=== PATIENT | male | born 1960 | race Two or more races ===

== ENCOUNTER 2018-11-11 15:02 | Outpatient (CLI) | payer OTHER | END 2018-11-11 15:18 | disposition home or self-care (01) | LOC: EDBD 15:02 → LAB 15:02 | DX: R97.20 Elevated prostate specific antigen [PSA] (principal) ==

== ENCOUNTER 2019-01-24 19:12 | Emergency (ER) | payer OTHER ==
[~2019-01-24] VITALS: Ht 165.1 cm; Wt 86.2 kg
[2019-01-24] MEDS ORDERED: NORVASC5 MG PO (20:34)
[2019-01-24] MEDS ORDERED: CIPRO500 MG PO (20:35)
[2019-01-24] MEDS ORDERED: TAMS0.4C PO (20:35)
== END 2019-01-25 00:21 | disposition home or self-care (01) ==
LOC: ER 19:12
DX: R33.8 Other retention of urine (principal)

== ENCOUNTER 2019-02-09 07:09 | Outpatient (CLI) | payer OTHER ==
[~2019-02-09 07:09] MED LIST: CIPRO500 MG PO; NORVASC5 MG PO; TAMS0.4C PO
== END 2019-02-09 08:19 | disposition home or self-care (01) ==
LOC: SONOGRAMA 07:09
DX: R97.20 Elevated prostate specific antigen [PSA] (principal)

== ENCOUNTER 2019-02-20 16:23 | Emergency (ER) | payer OTHER ==
[~2019-02-20] VITALS: Ht 170.2 cm; Wt 87.1 kg
== END 2019-02-20 19:42 | disposition home or self-care (01) ==
LOC: ER 16:23
DX: N40.1 Benign prostatic hyperplasia with lower urinary tract symptoms (principal); R33.8 Other retention of urine

== ENCOUNTER 2019-03-16 08:00 | Inpatient (IN) | payer OTHER ==
[~2019-03-16] VITALS: Ht 167.6 cm; Wt 87.1 kg
== END 2019-03-27 13:32 | disposition home or self-care (01) | DRG 708 ==
LOC: ADM 08:00 → EDSTATUS 08:00 → O/R 03-25 05:00 → SURH 03-25 05:00 → SURG 03-25 07:00 → SURH 03-25 10:28
PROVIDERS: ADMIT Urology
PROC: 0VT00ZZ Resection of Prostate, Open Approach (ICD-10-PCS; principal; 2019-03-25 07:00)
DX: N40.1 Benign prostatic hyperplasia with lower urinary tract symptoms (principal); R33.8 Other retention of urine; I10 Essential (primary) hypertension